=== PATIENT | female | born 1955 | race Caucasian/White ===

== ENCOUNTER 2024-08-08 13:01 | Outpatient (CLI) | payer MEDICARE, MEDICAID ==
[2024-08-08 14:34] LABS: ALANINE AMINOTRANSFERASE 25 U/L (12-78); ALBUMIN 3.6 G/DL (3.4-5.0); ALBUMIN/GLOBULIN RATIO 0.9 (1.1-1.5); ALKALINE PHOSPHATASE 80 IU/L (46-116); ANION GAP 4 (8-16); ASPARTATE AMINO TRANSFERASE 13 U/L (10-37); BILIRUBIN,TOTAL 0.4 MG/DL (0.1-1.0); BLOOD UREA NITROGEN 8 MG/DL (7-18); BUN/CREATININE RATIO 15.1 (10.0-20.0); C-REACTIVE PROTEIN 0.74 MG/DL (0.0-0.5); CALCIUM 9.1 MG/DL (8.5-10.1); CHLORIDE 102 MMOL/L (99-107); CREATININE 0.53 MG/DL (0.40-0.90); GLUCOSE 82 MG/DL (70-104); POTASSIUM 4.2 MMOL/L (3.5-5.1); SODIUM 143 MMOL/L (135-145); TOTAL PROTEIN 7.8 G/DL (6.4-8.2); eGFR > 90 ML/MIN
[2024-08-08] MEDS ORDERED: GADOTERATE MEGLUMINE 7.5 MMOL/15 ML VIAL IV ONE (20:44)
== END 2024-08-08 23:59 | disposition home or self-care (01) ==
LOC: MRI 13:01
PROVIDERS: ATTEND Ophthalmology
DX: I67.82 Cerebral ischemia (principal); H47.10 Unspecified papilledema; G31.89 Other specified degenerative diseases of nervous system
CPT/HCPCS: 36415; 70543; 70553; 80053; 85651; 86140; A9575